=== PATIENT | female | born 1980 | race Caucasian/White ===

== ENCOUNTER 2017-01-07 07:40 | Emergency (ER) | payer SELFPAY ==
--- NOTE | 2017-01-07 08:56 | EDM.PDOC ---
ED HPI GENERAL MEDICAL PROBLEM - General Stated Complaint: SWOLLEN FACE Time Seen by Provider: 01/07/17 07:40 Source of Information: Reports: Patient History Limitations: Reports: No Limitations - History of Present Illness INITIAL COMMENTS - FREE TEXT/NARRATIVE: 36 y.o.w.f -smoker- came to the ed with facial swelling for 3 days. Pt had toothache, which subsided MARITIME PILOT. Pt has a dental appointment in 3 days. No N/V/D no trauma or any other acute medical issues at this time. BP 165/110 Puls 94 Onset: Today Onset Date: 01/06/17 Onset Time: 07:00 Duration: Day(s):, Improving (swelling is worsening and the toothache subsided.) Location: Reports: Face Quality: Reports: Dull Severity: Moderate Improves with: Reports: None Worsens with: Reports: None - Related Data Allergies Allergy/AdvReac Type Severity Reaction Status Date / Time lorazepam Allergy Cardiac Verified 01/07/17 09:14 Arrest morphine Allergy Rash Verified 01/07/17 09:14 Home Meds: Home Meds Amoxicillin/Potassium Clav [Augmentin 875-125 Tablet] 1 each PO BID #20 tablet 01/07/17 [Rx] Past Medical History Other Cardiovascular History: VSD - Past Surgical History Other Musculoskeletal Surgeries/Procedures:: ACL repair of right knee, bilat carpal tunnel Social & Family History - Tobacco Use Smoking Status *Q: Never Smoker Years of Tobacco use: 5 Packs/Tins Daily: 0.3 - Recreational Drug Use Recreational Drug Use: Yes Drug Use in Last 12 Months: Yes Recreational Drug Type: Reports: Methamphetamine Recreational Drug Use Frequency: Not Used In Over 5 Months - Living Situation & Occupation Living situation: Reports: Occupation: Employed ED ROS ENT - Review of Systems Review Of Systems: See Below Constitutional: Reports: No Symptoms HEENT: Reports: Dental Pain (subsided MARITIME PILOT) Respiratory: Reports: No Symptoms Cardiovascular: Reports: No Symptoms Endocrine: Reports: No Symptoms GI/Abdominal: Reports: No Symptoms : Reports: No Symptoms Musculoskeletal: Reports: No Symptoms Skin: Reports: No Symptoms Neurological: Reports: No Symptoms Psychiatric: Reports: No Symptoms Hematologic/Lymphatic: Reports: No Symptoms Immunologic: Reports: No Symptoms ED EXAM, ENT - Physical Exam Exam: See Below Exam Limited By: No Limitations General Appearance: Alert, WD/WN, No Apparent Distress Eye Exam: Bilateral Eye: Normal Inspection Ears: Normal External Exam, Normal Canal Nose: Normal Inspection, Normal Mucousa, No Blood Mouth/Throat: Normal Gums, Normal Lips, Dental Abcess, Dental Tenderness, Other (swelling left cheek) Head: Facial Swelling (left side) Neck: Normal Inspection, Supple, Non-Tender, Full Range of Motion Respiratory/Chest: No Respiratory Distress, Lungs Clear, Normal Breath Sounds Cardiovascular: Normal Peripheral Pulses, Regular Rate, Rhythm, No Edema GI/Abdominal: Normal Bowel Sounds, Soft, Non-Tender, No Organomegaly (Female) Exam: Deferred Rectal (Female) Exam: Deferred Back: Normal Inspection, Full Range of Motion Extremities: Normal Inspection, Normal Range of Motion, Non-Tender Neurological: Alert, Oriented, CN II-XII Intact Psychiatric: Normal Affect, Normal Mood Skin: Warm, Dry, Intact, Normal Color, No Rash Lymphatic: No Adenopathy Course - Vital Signs Text/Narrative:: 36 y.o.w.f -smoker- came to the ed with facial swelling for 3 days. Pt had toothache, which subsided MARITIME PILOT. Pt has a dental appointment in 3 days. No N/V/D no trauma or any other acute medical issues at this time. BP 165/110 Puls 94 PE: left cheek swelling, poor dentition, no pain imaging: Facial CT: Parotitis, no abscess, official report is pending. Impression: parotitis Tx: Pt will see her PMD/ENT Plan: D/C with instructions Last Recorded V/S: Last Vital Signs Temp 35.9 C 01/07/17 07:40 Pulse 95 01/07/17 07:40 Resp 18 01/07/17 07:40 BP 165/110 H 01/07/17 07:40 Pulse Ox 100 01/07/17 07:40 - Orders/Labs/Meds Orders: Active Orders 24 hr Category Date Time Status Max Facial Sinus wo Cont [CT] Stat Exams 01/07/17 07:51 Taken Departure - Departure Time of Disposition: 08:56 Disposition: Home, Self-Care 01 Condition: Good Clinical Impression: Tooth abscess - Discharge Information Prescriptions: Amoxicillin/Potassium Clav [Augmentin 875-125 Tablet] 1 each PO BID #20 tablet Referrals: PCP,None [Primary Care Provider] - Forms: ED Department Discharge Additional Instructions: Please see your PMD/ENT a.s.a.p, take the medications, come back to the ed if your symptoms get worse acutely - My Orders Last 24 Hours: My Active Orders 01/07/17 07:51 Max Facial Sinus wo Cont [CT] Stat - Assessment/Plan Last 24 Hours: My Active Orders 01/07/17 07:51 Max Facial Sinus wo Cont [CT] Stat
[2017-01-07 09:27] VITALS: BP 165/110
== END 2017-01-07 09:00 | disposition home or self-care (01) ==
LOC: FB.ED 07:40
DX: K04.7 Periapical abscess without sinus (principal); K11.20 Sialoadenitis, unspecified; F17.210 Nicotine dependence, cigarettes, uncomplicated; Z88.5 Allergy status to narcotic agent; Z88.8 Allergy status to other drugs, medicaments and biological substances
CPT/HCPCS: 70486; 99283

== ENCOUNTER 2018-10-04 00:35 | Emergency (ER) | payer BC | END 2018-10-04 00:42 | disposition left against medical advice (07) | LOC: FB.ED 00:35 | DX: Z53.21 Procedure and treatment not carried out due to patient leaving prior to being seen by health care provider (principal) | CPT/HCPCS: 99282 ==

== ENCOUNTER 2018-12-19 20:03 | Emergency (ER) | payer BC ==
[2018-12-19 20:28] VITALS: BP 127/90
== END 2018-12-19 20:40 | disposition left against medical advice (07) ==
LOC: FB.ED 20:03
DX: Z53.21 Procedure and treatment not carried out due to patient leaving prior to being seen by health care provider (principal)

== ENCOUNTER 2019-10-02 01:42 | Emergency (ER) | payer BC ==
[2019-10-02] MEDS ORDERED: Diphtheria,Pertussis(Acell),Tetanus Vaccine 0.5 ML SDV ONE (02:00)
--- NOTE | 2019-10-02 02:17 | EDM.PDOCBH ---
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 She denies suicidal attempt or ideation. Admits to drinking alcohol this evening. Patient wrote a last will and testament this evening, but does not state therein that she wanted to or commit suicide. Onset: Today Duration: Hour(s): (1) Location: Reports: Upper Extremity, Right Severity: Mild - Related Data Allergies Allergy/AdvReac Type Severity Reaction Status Date / Time lorazepam Allergy Anaphylactic Verified 12/19/18 20:21 Shock morphine Allergy Rash Verified 12/19/18 20:21 seafood Allergy Non Uncoded 02/25/18 08:42 specific Home Meds: Home Meds NK [No Known Home Meds] 02/25/18 [History] Past Medical History Other Cardiovascular History: VSD Psychiatric History: Reports: Suicidal Ideation Oncologic (Cancer) History: Reports: Breast - Past Surgical History GI Surgical History: Reports: Other (See Below) Other GI Surgeries/Procedures: Various laparoscopic surgeries. Other Musculoskeletal Surgeries/Procedures:: ACL repair of right knee, bilat carpal tunnel Social & Family History - Tobacco Use Smoking Status *Q: Current Every Day Smoker Tobacco Use Within Last Twelve Months: Cigarettes - Caffeine Use Caffeine Use: Reports: Coffee - Alcohol Use Alcohol Use History: Yes - Recreational Drug Use Recreational Drug Use: No - Living Situation & Occupation Living situation: Reports: Occupation: Employed ED ROS GENERAL - Review of Systems Review Of Systems: Comprehensive ROS is negative, except as noted in HPI. ED EXAM, BEHAVIORAL HEALTH - Physical Exam Exam: See Below Exam Limited By: No Limitations General Appearance: Alert, WD/WN, No Apparent Distress Ears: Normal External Exam Nose: Normal Inspection Throat/Mouth: No Airway Compromise Head: Atraumatic, Normocephalic Neck: Full Range of Motion Respiratory/Chest: No Respiratory Distress Cardiovascular: Other (2+ left radial pulse) Back Exam: Full Range of Motion Extremities: Other (3 lacerations to anterior left forearm (1 cm, 2 cm, and 2.5 cm)) Neurological: Alert, Normal Mood/Affect, Normal Cognition, No Motor/Sensory Deficits Psychiatric: Alert, Normal Affect, Normal Cognition, Normal Mood, Oriented Skin Exam: Other (As above) COURSE, BEHAVIORAL HEALTH COMP - Course Vital Signs: Last Vital Signs Temp 36.6 C 10/02/19 01:50 Pulse 104 H 10/02/19 01:50 Resp 18 10/02/19 01:50 BP 117/92 H 10/02/19 01:50 Pulse Ox 98 10/02/19 01:50 Orders, Labs, Meds: Medications Discontinued Medications Generic Name Dose Route Start Last Admin Trade Name Mirna PRN Reason Stop Dose Admin Diphtheria/Tetanus/Acell Pertussis Confirm 10/02/19 02:00 Adacel Administered 10/02/19 02:01 Dose 0.5 ml .ROUTE .STK-MED ONE Re-Assessment/Re-Exam: Wounds were cleansed with Hibiclens and repaired using Dermabond. Medical Clearance: 10/02/19 02:41 [facility] He does not believe she is suicidal and does not recommend inpatient treatment. Departure - Departure Time of Disposition: 02:39 Disposition: Home, Self-Care 01 Clinical Impression: Laceration of forearm, left Qualifiers: Encounter type: initial encounter Qualified Code(s): S51.812A - Laceration without foreign body of left forearm, initial encounter - Discharge Information *PRESCRIPTION DRUG MONITORING PROGRAM REVIEWED*: Yes *COPY OF PRESCRIPTION DRUG MONITORING REPORT IN PATIENT YAO: No Instructions: Laceration Care, Adult, [id number], Sutures, Jesu, or Adhe sive Wound Closure, [id number], Self-Harming Behavior Information Referrals: Ann Crowe NP [Primary Care Provider] - 2 Days Forms: ED Department Discharge Additional Instructions: Follow up with your primary physician in 2 days. Return to the ER with any concerns, especially if you feel like harming yourself. Sepsis Event Note (ED) - Focused Exam Vital Signs: Vital Signs Temp Pulse Resp BP Pulse Ox 10/02/19 01:50 36.6 C 104 H 18 117/92 H 98
[2019-10-02 02:25] VITALS: BP 117/92; PULSE 104
== END 2019-10-02 02:45 | disposition home or self-care (01) ==
LOC: FB.ED 01:42
DX: S51.812A Laceration without foreign body of left forearm, initial encounter (principal); F17.210 Nicotine dependence, cigarettes, uncomplicated; Z91.013 Allergy to seafood; Z88.5 Allergy status to narcotic agent; Z88.8 Allergy status to other drugs, medicaments and biological substances; Z23 Encounter for immunization; X78.9XXA Intentional self-harm by unspecified sharp object, initial encounter
CPT/HCPCS: 12002; 90471; 90715; 99284

== ENCOUNTER 2020-01-10 13:42 | Emergency (ER) | payer BC ==
[2020-01-10] MEDS ORDERED: Sodium Chloride 0.9% 10 ML Syringe FLUSH PRN (13:46)
[2020-01-10] MEDS ORDERED: Aspirin 81 MG Tab.Chew PO ONE (13:47)
[2020-01-10] MEDS ORDERED: Ketorolac 60 MG/2 ML SDV IM ONE (14:24)
[2020-01-10] MEDS ORDERED: Cyclobenzaprine 10 MG Tab PO ONE (14:24)
--- NOTE | 2020-01-10 14:54 | EDM.PDOC ---
ED HPI GENERAL MEDICAL PROBLEM - General Chief Complaint: Chest Pain Stated Complaint: CHEST PAIN Time Seen by Provider: 01/10/20 13:55 Source of Information: Reports: Patient History Limitations: Reports: No Limitations - History of Present Illness INITIAL COMMENTS - FREE TEXT/NARRATIVE: Patient presented to the ED because of chest wall pain. She was playing with her grand daughter at the pool yesterday and injured her chest. Since then she c/o chest wall pain. She was seen in the clinic yesterday and a rib xray was negative. Today she was spray painting and has severe squeezing pain which improved upon her arrival in the ED. Mid-Anterior Chest Pain Score (Numeric/FACES): 10 - Related Data Allergies Allergy/AdvReac Type Severity Reaction Status Date / Time lorazepam Allergy Anaphylactic Verified 10/02/19 06:21 Shock morphine Allergy Rash Verified 10/02/19 06:21 seafood Allergy Hives Uncoded 01/10/20 13:49 Home Meds: Home Meds Naproxen 500 mg PO BID 01/10/20 [History] traMADol [Ultram] 50 mg PO Q8H PRN 01/10/20 [History] Past Medical History Other Cardiovascular History: VSD Psychiatric History: Reports: Suicidal Ideation Other Psychiatric History: Self cutting. Oncologic (Cancer) History: Reports: Breast - Past Surgical History GI Surgical History: Reports: Other (See Below) Other GI Surgeries/Procedures: Various laparoscopic surgeries. Other Musculoskeletal Surgeries/Procedures:: ACL repair of right knee, bilat carpal tunnel Social & Family History - Tobacco Use Smoking Status *Q: Current Every Day Smoker Years of Tobacco use: 20 Packs/Tins Daily: 0.5 - Caffeine Use Caffeine Use: Reports: Coffee - Recreational Drug Use Recreational Drug Use: No - Living Situation & Occupation Living situation: Reports: Occupation: Employed ED ROS GENERAL - Review of Systems Review Of Systems: See Below Constitutional: Reports: No Symptoms HEENT: Reports: No Symptoms Respiratory: Reports: No Symptoms Cardiovascular: Reports: Chest Pain Endocrine: Reports: No Symptoms GI/Abdominal: Reports: No Symptoms : Reports: No Symptoms Musculoskeletal: Reports: No Symptoms Skin: Reports: No Symptoms Neurological: Reports: No Symptoms Psychiatric: Reports: No Symptoms ED EXAM, GENERAL - Physical Exam Exam: See Below Exam Limited By: No Limitations General Appearance: Alert, No Apparent Distress Ears: Normal External Exam, Normal Canal, Hearing Grossly Normal Nose: Normal Inspection, Normal Mucosa, No Blood Throat/Mouth: Normal Inspection, Normal Lips, Normal Teeth, Normal Gums Head: Atraumatic, Normocephalic Neck: Normal Inspection, Supple, Non-Tender, Full Range of Motion Respiratory/Chest: No Respiratory Distress, Lungs Clear, Normal Breath Sounds, No Accessory Muscle Use, Chest Non-Tender Cardiovascular: Normal Peripheral Pulses, Regular Rate, Rhythm, No Edema, No Gallop, No JVD, No Murmur, No Rub, Other (chest wall tenderness) GI/Abdominal: Normal Bowel Sounds, Soft, Non-Tender, No Organomegaly, No Di stention, No Abnormal Bruit Back Exam: Normal Inspection, Full Range of Motion Course - Vital Signs Text/Narrative:: EKG-NSR Toradol 60 mg IM Patient refused to have labs, flexeril. She said her pain is better and doesn't want to spend more. Last Recorded V/S: Last Vital Signs Temp 36.8 C 01/10/20 13:53 Pulse 78 01/10/20 14:44 Resp 15 01/10/20 14:44 BP 108/79 01/10/20 14:44 Pulse Ox 98 01/10/20 14:44 - Orders/Labs/Meds Orders: Active Orders 24 hr Category Date Time Status Saline Lock Insert [OM.PC] Routine Oth 01/10/20 13:46 Ordered EKG 12 Lead [EK] Routine Ther 01/10/20 13:46 Ordered Meds: Medications Discontinued Medications Generic Name Dose Route Start Last Admin Trade Name Freq PRN Reason Stop Dose Admin Aspirin 81 mg 01/11/20 09:00 Halfprin PO DAILY GRACIE Aspirin 324 mg 01/10/20 13:47 01/10/20 14:01 Aspirin PO 01/10/20 13:48 324 mg ONETIME ONE Administration Cyclobenzaprine HCl 10 mg 01/10/20 14:24 01/10/20 14:45 Flexeril PO 01/10/20 14:25 Not Given ONETIME ONE Ketorolac Tromethamine 60 mg 01/10/20 14:24 01/10/20 14:41 Toradol IM 01/10/20 14:25 60 mg ONETIME ONE Administration Sodium Chloride 10 ml 01/10/20 13:46 Saline Flush FLUSH ASDIRECTED PRN Keep Vein Open Departure - Departure Time of Disposition: 15:00 Disposition: Home, Self-Care 01 Condition: Good Clinical Impression: Atypical chest pain Instructions: Chest Wall Pain, [id number] Referrals: Ann Crowe NP [Primary Care Provider] - Forms: ED Department Discharge Additional Instructions: Please read discharge instructions on atypical chest pain/chest wall pain Take Naproxen 500 mg with tramadol 100 mg twice daily as needed for pain Follow up as needed Sepsis Event Note (ED) - Evaluation Sepsis Screening Result: No Definite Risk - My Orders Last 24 Hours: My Active Orders 01/10/20 13:46 Saline Lock Insert [OM.PC] Routine EKG 12 Lead [EK] Routine - Assessment/Plan Last 24 Hours: My Active Orders 01/10/20 13:46 Saline Lock Insert [OM.PC] Routine EKG 12 Lead [EK] Routine
[2020-01-10 14:55] VITALS: BP 108/79; PULSE 78
--- NOTE | 2020-01-10 14:56 | CR ---
INDICATION: Chest pain. CHEST ONE VIEW: Portable AP upright view of the chest was obtained 01/10/20 and compared with 09/05/18 again revealing the heart to be normal in size and shape. The aorta is slightly tortuous compared with the previous study. Overlying EKG leads are noted. An active infiltrate or effusion was not identified with similar pulmonary markings. IMPRESSION: No acute process. MTDD
[2020-01-11] MEDS ORDERED: Aspirin 81 MG Tab.EC PO SCH (09:00)
== END 2020-01-10 15:11 | disposition home or self-care (01) ==
LOC: FB.ED 13:42
DX: R07.89 Other chest pain (principal); F17.210 Nicotine dependence, cigarettes, uncomplicated; Z88.8 Allergy status to other drugs, medicaments and biological substances; Z88.5 Allergy status to narcotic agent; Z91.013 Allergy to seafood
CPT/HCPCS: 71045; 93005; 96372; 99285; A9270; J1885; 99283

== ENCOUNTER 2020-01-19 22:08 | Emergency (ER) | payer BC ==
[2020-01-19 22:37] VITALS: BP 124/96; PULSE 81
--- NOTE | 2020-01-19 22:51 | EDM.PDOC ---
ED HPI GENERAL MEDICAL PROBLEM - General Chief Complaint: Respiratory Problem Stated Complaint: sob Time Seen by Provider: 01/19/20 22:20 Source of Information: Reports: Patient History Limitations: Reports: No Limitations - History of Present Illness INITIAL COMMENTS - FREE TEXT/NARRATIVE: c/o L rib pain 2w ago pt ran into a water slide trying to catch a grandchildren, injuring her L rib laterally she then had pain to move along the same rib centrally has pain with deep breath altho no cough, no f/c/d, no n/v pt worried that she may have pneumonia altho PO 100% and vss pt preferred not to have a CxR as she did not want to pay for it PE is neg and there is no clinical indication of infectious 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, stays very active did drink alcohol did see her PCP who told her to take DB to prevent pneumonia - Related Data Allergies Allergy/AdvReac Type Severity Reaction Status Date / Time lorazepam Allergy Anaphylactic Verified 01/19/20 22:36 Shock morphine Allergy Rash Verified 01/19/20 22:36 seafood Allergy Hives Uncoded 01/10/20 13:49 Home Meds: Home Meds Naproxen 500 mg PO BID 01/10/20 [History] traMADol [Ultram] 50 mg PO Q8H PRN 01/10/20 [History] Past Medical History Other Cardiovascular History: VSD Respiratory History: Reports: Other (See Below) Other Respiratory History: chronic smoker since 16 years old. [employer] History: Reports: Psychiatric History: Reports: Suicidal Ideation Other Psychiatric History: Self cutting. Oncologic (Cancer) History: Reports: Breast - Past Surgical History GI Surgical History: Reports: Other (See Below) Other GI Surgeries/Procedures: Various laparoscopic surgeries. Other Musculoskeletal Surgeries/Procedures:: ACL repair of right knee, bilat carpal tunnel Social & Family History - Family History Family Medical History: Noncontributory - Caffeine Use Caffeine Use: Reports: Coffee - Living Situation & Occupation Living situation: Reports: Occupation: Employed ED ROS GENERAL - Review of Systems Review Of Systems: See Below Constitutional: Reports: No Symptoms HEENT: Reports: No Symptoms Respiratory: Reports: Pleuritic Chest Pain, Other (no h/o asthma, smokes > 1/2 ppd, no THC). Denies: Shortness of Breath, Wheezing, Cough Cardiovascular: Reports: No Symptoms Endocrine: Reports: No Symptoms GI/Abdominal: Reports: No Symptoms : Reports: No Symptoms Musculoskeletal: Reports: No Symptoms Skin: Reports: No Symptoms Neurological: Reports: No Symptoms Psychiatric: Reports: No Symptoms Hematologic/Lymphatic: Reports: No Symptoms Immunologic: Reports: No Symptoms ED EXAM, GENERAL - Physical Exam Exam: See Below General Appearance: Alert, WD/WN, No Apparent Distress, Anxious, Other (mildly anxious, difficult to reassure, long discussions) Throat/Mouth: Normal Inspection, Normal Voice, No Airway Compromise Head: Atraumatic Neck: Normal Inspection, Supple, Non-Tender, Full Range of Motion. No: Lymphadenopathy (R), Lymphadenopathy (L) Respiratory/Chest: No Respiratory Distress, Lungs Clear, Normal Breath Sounds, Other (clear in all joe, mild tender along L rib #6, no localized tender or criteria for fx) Cardiovascular: Regular Rate, Rhythm, No Murmur GI/Abdominal: Soft, Non-Tender Back Exam: Normal Inspection, Full Range of Motion Extremities: Normal Inspection, Normal Range of Motion Neurological: Alert, Oriented, CN II-XII Intact, Normal Cognition Psychiatric: Anxious Skin Exam: Warm, Dry, Intact, Normal Color, No Rash Lymphatic: No Adenopathy Course - Vital Signs Last Recorded V/S: Last Vital Signs Temp 35.8 C L 01/19/20 22:15 Pulse 81 01/19/20 22:15 Resp 17 01/19/20 22:15 BP 124/96 H 01/19/20 22:15 Pulse Ox 100 01/19/20 22:15 - Re-Assessments/Exams Free Text/Narrative Re-Assessment/Exam: 01/19/20 22:54 pt given tramadol at previous visit, has helped, only used a few, has some left also had benefit from apap and Aleve, advised to continue had a rib contusion, now also with a mild costochondritis no evidence of infection or pneumonia or pneumothorax or cardiac issues Departure - Departure Time of Disposition: 22:45 Disposition: Home, Self-Care 01 Condition: Good Clinical Impression: Contusion of rib on left side, Costochondral chest pain - Discharge Information *PRESCRIPTION DRUG MONITORING PROGRAM REVIEWED*: Not Applicable *COPY OF PRESCRIPTION DRUG MONITORING REPORT IN PATIENT YAO: Not Applicable Instructions: Rib Contusion, Costochondritis Referrals: PCP,None [Primary Care Provider] - Additional Instructions: For pain and inflammation, continue Aleve 1 tab 3 times a day for one week, longer if needed. For pian and inflammation, also take acetaminophen 325 mg 2 tabs 3 times a day for one week, longer if needed. Use moist heat for 10 minutes several times a day. No limitations on activities or working. See your physician as needed. Sepsis Event Note (ED) - Evaluation Sepsis Screening Result: No Definite Risk - Focused Exam Vital Signs: Vital Signs Temp Pulse Resp BP Pulse Ox 01/19/20 22:15 35.8 C L 81 17 124/96 H 100
== END 2020-01-19 22:50 | disposition home or self-care (01) ==
LOC: FB.ED 22:08
DX: S20.212A Contusion of left front wall of thorax, initial encounter (principal); F17.200 Nicotine dependence, unspecified, uncomplicated; Z88.8 Allergy status to other drugs, medicaments and biological substances; Z88.5 Allergy status to narcotic agent; Z91.018 Allergy to other foods; Z91.013 Allergy to seafood; W22.8XXA Striking against or struck by other objects, initial encounter
CPT/HCPCS: 99283

== ENCOUNTER 2021-02-21 16:42 | Emergency (ER) | payer BC ==
[2021-02-21 16:53] VITALS: BP 134/94; PULSE 100
[2021-02-21] MEDS ORDERED: Sodium Chloride 0.9% 10 ML Syringe FLUSH PRN (17:21)
[2021-02-21] MEDS ORDERED: Thiamine 100 MG in Sodium Chloride 0.9% 100 ML IV ONE (17:21)
[2021-02-21] MEDS ORDERED: Sodium Chloride 0.9% 1,000 ML IV SCH (17:30)
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
== END 2021-02-21 18:00 | disposition left against medical advice (07) ==
LOC: FB.ED 16:42
DX: S52.502A Unspecified fracture of the lower end of left radius, initial encounter for closed fracture (principal); S52.501A Unspecified fracture of the lower end of right radius, initial encounter for closed fracture; Z88.5 Allergy status to narcotic agent; Z91.013 Allergy to seafood; Z72.0 Tobacco use; W10.8XXA Fall (on) (from) other stairs and steps, initial encounter
CPT/HCPCS: 36415; 73110-50; 80053; 80307; 82150; 83690; 85025; 96374; 99283-25; J3411; J7030

== ENCOUNTER 2021-08-20 21:01 | Emergency (ER) | payer BC ==
[2021-08-20 23:55] VITALS: BP 114/74; PULSE 105
== END 2021-08-20 22:00 | disposition home or self-care (01) ==
LOC: FB.ED 21:01
DX: R07.89 Other chest pain (principal); Z88.5 Allergy status to narcotic agent; Z91.013 Allergy to seafood; Z88.8 Allergy status to other drugs, medicaments and biological substances; Z87.891 Personal history of nicotine dependence
CPT/HCPCS: 36415; 71045; 80053; 83880; 84484; 85025; 85379; 93005; 99285-25

== ENCOUNTER 2022-02-16 22:40 | Emergency (ER) | payer BC, OTHER ==
[2022-02-16 22:56] VITALS: BP 136/95; PULSE 101
[2022-02-16] MEDS ORDERED: Ketorolac 30 MG/ML SDV IM ONE (23:10)
== END 2022-02-16 23:43 | disposition home or self-care (01) ==
LOC: FB.ED 22:40
DX: S29.9XXA Unspecified injury of thorax, initial encounter (principal); Z88.8 Allergy status to other drugs, medicaments and biological substances; Z88.6 Allergy status to analgesic agent; Z91.013 Allergy to seafood; W01.198A Fall on same level from slipping, tripping and stumbling with subsequent striking against other object, initial encounter
CPT/HCPCS: 93005; 99283

== ENCOUNTER 2022-07-14 05:48 | Emergency (ER) | payer BC ==
[2022-07-14 07:08] LABS: ESTIMATED GFR 113 mL/min (>60)
[2022-07-14] MEDS ORDERED: Iopamidol 755 Mg/ML 100 ML Bottle IV ONE (07:08)
[2022-07-14] MEDS ORDERED: Potassium Chloride 20 MEQ Tab.ER PO STA (07:47)
[2022-07-14] MEDS ORDERED: Diazepam 5 MG Tab PO ONE (08:06)
[2022-07-14 08:56] VITALS: BP 121/95; PULSE 99
== END 2022-07-14 09:00 | disposition home or self-care (01) ==
LOC: FB.ED 05:48
DX: H81.10 Benign paroxysmal vertigo, unspecified ear (principal); E87.6 Hypokalemia; F17.210 Nicotine dependence, cigarettes, uncomplicated; Z79.899 Other long term (current) drug therapy; Z88.5 Allergy status to narcotic agent; Z88.8 Allergy status to other drugs, medicaments and biological substances; Z91.013 Allergy to seafood
CPT/HCPCS: 36415; 74177; 80053; 83690; 84484; 85025; 85379; 86140; 99284; A9270; Q9967